=== PATIENT | female | born 1950 | race Caucasian/White ===

== ENCOUNTER → 2017-11-01 | Day surgery (SDC) | payer OTHER ==
[~2017-11-01] VITALS: Ht 160 cm; Wt 68.0 kg
[~2017-11-01] MED LIST: AMLODIPINE-BEN1 EAC2 PO; ATENOLOL25 M1 PO; DILAUDID2 M1 PO; FLOMAX0.4 M1 PO; METOPROLOL SUCC25 M1 PO; PHENERGAN12.5 M2 RC; VITAMIN B-121000 MC3 PO; VITAMIN D2000 UNIT PO; ZOFRAN ODT4 M1 SL
--- NOTE | 2017-11-01 14:11 | Operative Report ---
Operative/Inv Procedure Report Surgery Date: 11/01/17 Name of Procedure: Lateral ureteroscopy with possible laser lithotripsy possible stent placement possible retrograde pyelograms possible biopsy. Pre-Operative Diagnosis: Right renal stone 6 mm left calcification nondependent of unclear etiology Post-Operative Diagnosis: Bilateral kidney stones Estimated Blood Loss: scant Surgeon/Welfare Officer: Dominique Alvarez MD Anesthesia: laryngeal mask airway Drains: 6 x 24 cm right and left stent Specimens: Right renal stones Complications: None Condition: Stable Operative Indication: Left calcification of unclear etiology Right renal stone 6 mm Operative/Procedure Note Note: 67-year-old female Rosa Maria Brewer with a history of kidney stones. She is been having left upper quadrant pain of unclear etiology. However on CAT scan she did have a left calcification in the kidney that was nondependent and of unclear etiology. As result it was discussed with the patient to perform a left retrograde pyelogram were left ureteroscopy to determine if the calcification was anything of concern. She had a right kidney stone 6 mm in size that was to be addressed at the same time. The risks benefits and alternatives of the procedures were given and all questions were answered. She understood that she might have bilateral stents. Consent was signed. Patient was taken to the operating placed on the operating table in supine position. Timeout was performed. IV antibiotics were infused. LMA anesthesia was begun. Patient was placed in the dorsolithotomy position and prepped and draped in the standard sterile fashion. Cystoscopy was performed and the bladder was globally inspected. There were no abnormalities other than a left ureteral orifice stone sitting at the UVJ and visible cystoscopically. It was crystalline in nature. This was very brittle and was pushed up the ureter when the solo guidewire was placed into the renal pelvis under fluoroscopic guidance. A second wire superstiff was placed with the dual-lumen catheter. The flexible ureteroscope was then placed over the Super Stiff wire into the renal pelvis. The renal pelvis was examined and there were tiny crystalline stones in the mid pole. These were lasered with the 2 273 fiber. In the renal pelvis another stone was seen that was white crystalline in nature and very coral-like and this was blast into smaller fragments as well. The stone was very brittle and easy to break up with the laser did not require removal with the basket. It was fragmented into tiny particles. The ureteroscope was removed while examining the ureter on the way out. No other stones were seen and the stone in the distal UVJ was no longer there and presumably in the bladder. It was very brittle in nature. It may have broken up. The remaining Solo wire was then used with the cystoscope to place a 6 x 24 cm ureteral stent. It was seen to be in good position fluoroscopically and cystoscopically. Attention was then turned to the right side of the patient. The cystoscope was used to place the Solo wire up to the renal pelvis. This was followed by the Super Stiff wire using the dual-lumen catheter. 25 cm ureteral access sheath was then placed over the Super Stiff wire. There was no resistance or difficulty. The inner sheath was placed first followed by the inner sheath and outer sheath together. The inner sheath and wire was removed and the flexible ureteroscope was passed up the ureter into the renal pelvis. Upon doing so all the calyces were examined. A long millimeter stone was seen in the upper pole. This was fragmented and removed with the 0 tip basket. These fragments were sent to pathology for stone analysis. There were no other stones seen in the other calyces. However all the calyces were examined again. The ureteroscope was then removed examining the ureter on the way out and no stones were seen in the ureter either. The remaining Solo wire was then used to place a 6 x 24 cm ureteral stent with the cystoscope. Was seen to be in good position fluoroscopically and cystoscopically and the wire was removed. Patient tolerated the procedure well. The bladder was emptied. Patient was cleaned of the Betadine solution. she was transferred to the recovery room stable condition. Findings: Left renal stones and no calcified renal lesion. Right 6 mm renal stone Discharge Disposition: PACU
--- NOTE | 2017-11-03 15:11 | RADIOLOGY REPORT ---
EXAMINATION: INTRAOPERATIVE FLUOROSCOPY OF THE ABDOMEN. CLINICAL INDICATION: Bilateral ureteroscopy with laser and stent placement. COMPARISON: Abdominal fluoroscopy 03/13/2017. TECHNIQUE: Intraoperative fluoroscopic images were obtained during the placement of bilateral ureteral stents. A total of 14 images were obtained. Total fluoroscopic time 19 seconds. FINDINGS/IMPRESSION: Abdominal fluoroscopic images reveal stages of bilateral laser lithotripsy and ureteral stent placement. No acute finding. Osseous structures are unremarkable.
== END ==
LOC: STS 02:25
DX: N20.0 Calculus of kidney (principal); Z87.442 Personal history of urinary calculi; I10 Essential (primary) hypertension
CPT/HCPCS: 74018; C2617; J0131; J0690; J1100; J2250; J2405

== ENCOUNTER 2017-11-05 13:07 | Emergency (ER) | payer OTHER ==
[~2017-11-05] VITALS: Ht 160 cm; Wt 68.0 kg
[~2017-11-05 13:07] MED LIST changes: -DILAUDID2 M1 PO; -FLOMAX0.4 M1 PO; -PHENERGAN12.5 M2 RC; -ZOFRAN ODT4 M1 SL
[2017-11-05 13:47] LABS: ABSOLUTE BASOPHIL COUNT 0.1 /CUMM (0.0-0.2); ABSOLUTE EOSINOPHIL COUNT 0 /CUMM (0.0-0.7); ABSOLUTE GRANULOCYTE CT 11.6 /CUMM (1.4-6.5); ABSOLUTE LYMPH COUNT 1.3 /CUMM (1.2-3.4); ABSOLUTE MONOCYTE COUNT 0.8 /CUMM (0.10-0.60); BASOPHIL % 0.4 % (0.0-2.0); EOSINOPHIL % 0.4 % (0-5); GRANULOCYTE % 83.9 % (42.2-75.2); HEMATOCRIT 40.5 % (37-47); MEAN CORPUSCULAR HGB 30.1 PG (27.0-31.0); MEAN CORPUSCULAR HGB CONC 33.9 G/DL (33.0-37.0); MEAN CORPUSCULAR VOLUME 88.7 FL (81.0-99.0); MEAN PLATELET VOLUME 8.8 FL (7.4-10.4); PLATELET COUNT 284 /CUMM (130-400); RED BLOOD CELL CT 4.56 /CUMM (4.20-5.40); WHITE BLOOD CELL COUNT 13.8 /CUMM (4.8-10.8)
--- NOTE | 2017-11-05 13:59 | ED GI/GU/ABDOMINAL COMPLAINT ---
History of Present Illness General Chief Complaint: Abdominal Pain/Flank Pain Stated Complaint: LOWER LT ABDOMINAL PAIN Source: patient Exam Limitations: no limitations Vital Signs & Intake/Output Vital Signs & Intake/Output Vital Signs Date Time Temp Pulse Resp B/P B/P Pulse O2 O2 Flow FiO2 Mean Ox Delivery Rate 11/05 1824 98.2 80 18 162/77 98 Room Air 11/05 1652 98.7 66 18 163/73 95 Room Air 11/05 1325 98.9 97 18 163/79 96 Room Air Allergies Coded Allergies: ibuprofen (Severe, SWELLING 10/31/17) Milk Containing Products (STOMACH CRAMPS 10/31/17) Sulfa (Sulfonamide Antibiotics) (CHILDHOOD 10/31/17) celery (ANAPHYLAXIS 10/31/17) garlic (STOMACH CRAMPS 10/31/17) perlita (tongue itch 10/31/17) pistachio nut (tongue itch 10/31/17) erythromycin base (CHEST PAIN 10/31/17) Reconcile Medications Amlodipine Besylate/Benazepril (Amlodipine-Benazepril 5-20 MG) 5 MG-20 MG CAPSULE 1 CAP PO DAILY HTN (Reported) Hydromorphone HCl (Dilaudid) 2 MG TABLET 1 TAB PO Q6HR PRN pain Metoprolol Succinate 25 MG TAB 1 TAB PO DAILY BP (Reported) Ondansetron (Zofran Odt) 4 MG TAB.RAPDIS 1 TAB SL TID nausea Promethazine HCl (Phenergan) 12.5 MG SUPP.RECT 1 SUP RC Q4-6 PRN nausea Tamsulosin HCl (Flomax) 0.4 MG CAP.ER.24H 1 CAP PO DAILY kidney stone Triage Note: PT HAVING LLQ PAIN PT STATES PAIN SINCE AUG. AND THEY THOUGHT IT WAS KIDNEY STONES AND SHE HAD THEM REMOVED SATURDAY AND STENT REMOVED YESTERDAY. PT STATES SHE HAS BEEN VOMITING ANY FLUIDS AND SHE HAS NOT BEEN GETTING PAIN MED OR ABX. PT STATES THE PAIN IS MUCH WORSE MOW. Triage Nurses Notes Reviewed? yes ? n Is pt currently ? No Onset: Abrupt Duration: week(s):, constant, continues in ED Timing: recent history Location: left lower quadrant Radiation: no radiation Activities at Onset: none No Modifying Factors: none HPI: 67-year-old female who presents emergency room with complaints of left lower abdominal pain. Patient reports that she's been experiencing pain in her abdomen for a few months now. She just underwent a procedure yesterday to have kidney stones removed and stent removed with Dr. Alvarez. She reports over the last few days she still having increased pain to her left lower abdomen. She's had associated vomiting and nausea has been unable to keep anything down. Denies any changes in her stool. Denies any prior abdominal surgeries other than the recent urological stents and kidney stone removal. Past History Travel History Traveled to [place] past 21 day No Medical History Any Pertinent Medical History? see below for history Cardiovascular: hypertension Renal: KIDNEY STONES Surgical History Surgical History: non-contributory Psychosocial History What is your primary language Pashto Tobacco Use: Never used ETOH Use: denies use Illicit Drug Use: denies illicit drug use Family History Hx Contributory? No Review of Systems Review of Systems Constitutional: Reports: no symptoms. EENTM: Reports: no symptoms. Respiratory: Reports: no symptoms. Cardiovascular: Reports: no symptoms. GI: Reports: see HPI. Genitourinary: Reports: no symptoms. Musculoskeletal: Reports: no symptoms. Skin: Reports: no symptoms. Neurological/Psychological: Reports: no symptoms. Hematologic/Endocrine: Reports: no symptoms. Immunologic/Allergic: Reports: no symptoms. All Other Systems: Reviewed and Negative Physical Exam Physical Exam General Appearance: well developed/nourished, alert, awake Head: atraumatic Eyes: Bilateral: normal appearance. Ears, Nose, Throat, Mouth: hearing grossly normal, moist mucous membrane Neck: normal inspection Respiratory: no respiratory distress Cardiovascular: regular rate/rhythm Gastrointestinal: soft, non-tender Back: normal inspection Extremities: normal range of motion Neurologic/Psych: awake, alert, oriented x 3 Skin: intact, normal color Core Measures ACS in differential dx? No Sepsis Present: No Sepsis Focused Exam Completed? No Progress Differential Diagnosis: appendicitis, bowel obstruction, cholecystitis, diverticulitis, ischemic bowel, kidney stone, ovarian cyst, ovarian torsion, UTI /pyelo Plan of Care: Orders Procedure Date/time Status Clear Liquid Diet 11/06 B Active Add-on Test (ER Only) 11/05 1327 Active URINALYSIS 11/05 1315 Complete LIPASE 11/05 1315 Complete COMPREHENSIVE METABOLIC PANEL 11/05 1315 Complete CBC WITHOUT DIFFERENTIAL 11/05 1315 Complete AMYLASE 11/05 1315 Complete Laboratory Tests 11/05/17 1535: Urine Color YEL, Urine Clarity CLEAR, Urine pH 6.5, Ur Specific [place] 1.010, Urine Protein NEG, Urine Ketones 15 H, Urine Nitrite NEG, Urine Bilirubin NEG, Urine Urobilinogen 0.2, Ur Leukocyte Esterase TRACE H, Ur Microscopic SEDIMENT EXAMINED, Urine RBC 50-75 H, Urine WBC 10-15 H, Ur Epithelial Cells RARE, Urine Bacteria RARE H, Urine Mucus RARE, Urine Hemoglobin MOD H, Urine Glucose NEG 11/05/17 1337: Anion Gap 14, Estimated GFR > 60, BUN/Creatinine Ratio 27.8 H, Glucose 122 H, Calcium 10.1, Total Bilirubin 1.2, AST 18, ALT 20, Alkaline Phosphatase 130 H, Total Protein 7.4, Albumin 4.3, Globulin 3.1, Albumin/Globulin Ratio 1.4, Amylase < 30 L, Lipase 25, CBC w Diff NO MAN DIFF REQ, RBC 4.56, MCV 88.7, MCH 30.1, MCHC 33.9, RDW 13.0, MPV 8.8, Gran % 83.9 H, Lymphocytes % 9.4 L, Monocytes % 5.9, Eosinophils % 0.4, Basophils % 0.4, Absolute Granulocytes 11.6 H, Absolute Lymphocytes 1.3, Absolute Monocytes 0.8 H, Absolute Eosinophils 0, Absolute Basophils 0.1 Diagnostic Imaging: Viewed by Me: CT Scan. Discussed w/RAD: CT Scan. Radiology Impression: PATIENT: ANGEL GAINES PRESENT AGE: 67 PATIENT ACCOUNT NO: [id number] : 49 LOCATION: [facility] ORDERING PHYSICIAN: Maurice SAHU SERVICE DATE: 11/05/17 EXAM TYPE: CAT - CT ABD & PELVIS W IV CONTRAST EXAMINATION: CT ABDOMEN AND PELVIS WITH CONTRAST CLINICAL INFORMATION: Left lower quadrant pain. COMPARISON: Limited fluoroscopic images from urologic procedure 11/01/2017. TECHNIQUE: Multidetector volumetric imaging was performed of the abdomen and pelvis following IV administration of 95 mL of Optiray 320 intravenous contrast. Sagittal and coronal reformatted images were obtained on the technologist's workstation. DLP: 335 mGy-cm FINDINGS : LUNG BASES: Calcified granuloma in the left lower lobe and hilum. LIVER, GALLBLADDER, AND BILIARY TREE: The liver is normal in size, shape, and attenuation. No focal hepatic lesion or biliary ductal dilatation is present. Cholelithiasis without CT evidence of cholecystitis. PANCREAS: Unremarkable. SPLEEN: Unremarkable. ADRENAL GLANDS: Unremarkable. KIDNEYS AND URETERS: There is mild enhancement of the urothelium bilaterally which is most likely sequela of recent procedure. There is no fluid collection around the ureters or the kidneys. There is a simple cyst in the lower pole of the right kidney. There is a simple cyst in the lower pole the left kidney. There is a 2 mm calculus at the left ureterovesicular junction. There is an additional punctate calculus about 1 cm proximal to the UVJ calculus. BLADDER: 2 mm calculus at the left ureterovesicular junction. Small amount of air within the bladder consistent with recent urologic procedure. GASTROINTESTINAL TRACT: Small hiatus hernia. Small bowel normal in caliber. Appendix normal. Moderate diverticulosis of the sigmoid colon. No evidence of diverticulitis. ABDOMINAL WALL: No significant hernia is appreciated. LYMPH NODES: Normal. VASCULAR: Unremarkable. PELVIC VISCERA: Small anterior uterine fibroid. No adnexal mass. OSSEOUS STRUCTURES: Severe degenerative disc disease at L5-S1. IMPRESSION: Postoperative changes from recent bilateral ureteroscopy. Both collecting systems are mildly dilated and the urothelium enhances which are likely findings related to ureteroscopy. A urinary tract infection cannot be excluded. Correlate with urinalysis. 2 mm calculus at the left ureterovesicular junction and additional punctate calculus about 1 cm proximal to the UVJ calculus. The left ureter is not more dilated than the right ureter. DICTATED BY: Marcellus Ann MD DATE/TIME DICTATED:1539 MUSIC PROFESSOR:MARTA DATE/TIME TRANSCRIBED:11/05/171539 CONFIDENTIAL, DO NOT COPY WITHOUT APPROPRIATE AUTHORIZATION. <Electronically signed in Other Vendor System> SIGNED BY: Marcellus Ann MD 11/05/17 0371 Initial ED EKG: none Departure Departure Disposition: HOME OR SELF CARE Condition: Stable Clinical Impression Primary Impression: Kidney stone on left side Referrals: Kate Leonard MD (PCP/Family) Additional Instructions: Take zofran ODT, promethazine suppository, dilaudid, and flomax as prescribed. Follow up with urologist Dr. Alvarez this week. Return if any increased vomiting, pain, or other concerning symptoms. Departure Forms: Customer Survey General Discharge Information Prescriptions: Current Visit Scripts Hydromorphone HCl (Dilaudid) 1 TAB PO Q6HR PRN pain #10 TAB Promethazine HCl (Phenergan) 1 SUP RC Q4-6 PRN nausea #20 SUP Ondansetron (Zofran Odt) 1 TAB SL TID #10 TAB Tamsulosin HCl (Flomax) 1 CAP PO DAILY #14 CAP Comments 11/05/2017 6:43:54 PM Patient is tolerating oral liquids here in the emergency room. She clinically looks well. She has been reevaluated multiple times here in the emergency room. Her pain has improved. She has a 2 mm stone. Spoke with Dr. Alvarez. Patient will be discharged with follow-up in the office. Continue plenty of hydration at home. Flomax. Continue antibiotics as well as pain medication. She reports that the oxycodone 10 mg tabs have not been giving her relief. I told the patient we can try some other pain medication such as Dilaudid tabs for her pain. Return if any other concerns. She understands and agrees with plan of care. She preferred to try the rectal suppository for the nausea because she has had difficulty with the pills and vomiting recently. ED Attending Observation Initial Observation Note: I have seen and personally examined ANGEL GAINES on 11/05/17 at 1845. I agree with the current emergency department documentation. The disposition (admission or discharge) is uncertain at this time, she needs a period of observation for the following reason(s): The ED Nurse caring for this patient has been personally informed as to what the patient is being observed for.
--- NOTE | 2017-11-05 15:52 | CT SCAN REPORT ---
EXAMINATION: CT ABDOMEN AND PELVIS WITH CONTRAST CLINICAL INFORMATION: Left lower quadrant pain. COMPARISON: Limited fluoroscopic images from urologic procedure 11/01/2017. TECHNIQUE: Multidetector volumetric imaging was performed of the abdomen and pelvis following IV administration of 95 mL of Optiray 320 intravenous contrast. Sagittal and coronal reformatted images were obtained on the technologist's workstation. DLP: 335 mGy-cm FINDINGS: LUNG BASES: Calcified granuloma in the left lower lobe and hilum. LIVER, GALLBLADDER, AND BILIARY TREE: The liver is normal in size, shape, and attenuation. No focal hepatic lesion or biliary ductal dilatation is present. Cholelithiasis without CT evidence of cholecystitis. PANCREAS: Unremarkable. SPLEEN: Unremarkable. ADRENAL GLANDS: Unremarkable. KIDNEYS AND URETERS: There is mild enhancement of the urothelium bilaterally which is most likely sequela of recent procedure. There is no fluid collection around the ureters or the kidneys. There is a simple cyst in the lower pole of the right kidney. There is a simple cyst in the lower pole the left kidney. There is a 2 mm calculus at the left ureterovesicular junction. There is an additional punctate calculus about 1 cm proximal to the UVJ calculus. BLADDER: 2 mm calculus at the left ureterovesicular junction. Small amount of air within the bladder consistent with recent urologic procedure. GASTROINTESTINAL TRACT: Small hiatus hernia. Small bowel normal in caliber. Appendix normal. Moderate diverticulosis of the sigmoid colon. No evidence of diverticulitis. ABDOMINAL WALL: No significant hernia is appreciated. LYMPH NODES: Normal. VASCULAR: Unremarkable. PELVIC VISCERA: Small anterior uterine fibroid. No adnexal mass. OSSEOUS STRUCTURES: Severe degenerative disc disease at L5-S1. IMPRESSION: Postoperative changes from recent bilateral ureteroscopy. Both collecting systems are mildly dilated and the urothelium enhances which are likely findings related to ureteroscopy. A urinary tract infection cannot be excluded. Correlate with urinalysis. 2 mm calculus at the left ureterovesicular junction and additional punctate calculus about 1 cm proximal to the UVJ calculus. The left ureter is not more dilated than the right ureter.
[2017-11-05] MEDS ORDERED: ZOFRAN ODT4 M1 SL (18:20)
[2017-11-05] MEDS ORDERED: PHENERGAN12.5 M2 RC (18:20)
[2017-11-05] MEDS ORDERED: FLOMAX0.4 M1 PO (18:20)
[2017-11-05] MEDS ORDERED: DILAUDID2 M1 PO (18:20)
[2017-11-05 18:24] VITALS: BP 162/77
== END 2017-11-05 18:27 ==
LOC: ERH 13:07
PROVIDERS: Physician Assistant Medical
DX: N20.0 Calculus of kidney (principal)
CPT/HCPCS: 74177; 81001; 96361; 96374; 96375; 96376; J0131; J2405